=== PATIENT | male | born 1960 | race Caucasian/White ===

== ENCOUNTER → 2024-03-12 15:19 | Outpatient (REF) | payer MEDICARE, OTHER, SELFPAY | LOC: RAD 15:19 | PROVIDERS: ATTENDING PHYSICIAN Emergency Medicine | DX: J20.9 Acute bronchitis, unspecified (principal) | CPT/HCPCS: 71046 ==

== ENCOUNTER → 2024-12-28 16:30 | Outpatient (REF) | payer MEDICARE, OTHER, SELFPAY | LOC: HWRAD 16:30 | PROVIDERS: ATTENDING PHYSICIAN Emergency Medicine | DX: J06.9 Acute upper respiratory infection, unspecified (principal) | CPT/HCPCS: 71046 ==